=== PATIENT | female | born 1935 | race Caucasian/White ===

== ENCOUNTER 2019-02-17 04:28 | Emergency (ER) | payer MEDICARE ==
[~2019-02-17] VITALS: Ht 157.5 cm; Wt 55.3 kg
[~2019-02-17 04:28] MED LIST: BRIM.15SO BOTHEYES; FISH OIL; LATA.005SO BOTHEYES; NIACIN; TIMOLOL
[2019-02-17] MEDS ORDERED: Prilosec Otc20 MG PO (05:15)
[2019-02-17 05:41] LABS: BASOPHILS ABSOLUTE AUTO 0.04 K/mm3 (0.00-0.23); BASOPHILS PERCENT AUTO 0 % (0-2); EOSINOPHILS ABSOLUTE AUTO 0.13 K/mm3 (0.00-0.68); EOSINOPHILS PERCENT AUTO 1 % (0-6); Hematocrit 37.6 % (33.0-51.0); Hemoglobin 11.8 g/dL (11.5-16.0); IMMATURE GRAN ABSOLUTE AUTO 0.06 K/mm3 (0.00-0.10); IMMATURE GRAN PERCENT AUTO 1 % (0-1); LYMPHOCYTES ABSOLUTE AUTO 3.03 K/mm3 (0.84-5.20); LYMPHOCYTES PERCENT AUTO 26 % (21-46); MONOCYTES ABSOLUTE AUTO 1.03 K/mm3 (0.16-1.47); MONOCYTES PERCENT AUTO 9 % (4-13); Mean Corpuscular HGB 29.2 pg (26.0-34.0); Mean Corpuscular HGB Conc 31.4 g/dL (31.5-36.5); Mean Corpuscular Volume 93 fL (80-100); Mean Platelet Volume 10.3 fL (9.1-12.4); NEUTROPHILS ABSOLUTE AUTO 7.25 K/mm3 (1.96-9.15); NEUTROPHILS PERCENT AUTO 63 % (41-73); Platelet Count 204 K/mm3 (150-400); RDW Coefficient Variation 14.8 % (11.7-14.2); RDW Standard Deviation 51.2 fL (35.1-46.3); Red Blood Cell Count 4.04 M/mm3 (3.80-5.20); White Blood Cell Count 11.54 K/mm3 (4.00-11.30)
[2019-02-17] MEDS ORDERED: Norco 5-325 Ta1 EACH PO (05:49)
[2019-02-17 06:13] LABS: Alanine Aminotransfer (ALT/SGP 17 U/L (12-78); Albumin, Blood 3.4 g/dL (3.4-5.0); Albumin/Globulin Ratio 0.9 (0.8-1.8); Alk Phos 60 U/L (50-136); Anion Gap 8 mmol/L (6-16); Aspartate Aminotrans (AST/SGOT 11 U/L (12-37); Bilirubin, Total 0.9 mg/dL (0.1-1.0); Blood Urea Nitrogen 23 mg/dL (8-24); CO2, Blood 25 mmol/L (21-32); Chloride, Blood 106 mmol/L (98-108); Globulin, Blood 3.9 g/dL (2.2-4.0); Glomerular Filtration Rate 56 (60-); Glucose, Blood 134 mg/dL (70-99); Potassium, Blood 3.7 mmol/L (3.5-5.5); Sodium, Blood 139 mmol/L (136-145); Total Protein, Blood 7.3 g/dL (6.4-8.2); Troponin I <0.015 ng/mL (0.000-0.040)
== END 2019-02-17 06:35 | disposition home or self-care (01) ==
LOC: ER 04:28
PROVIDERS: Emergency Medicine
DX: M06.9 Rheumatoid arthritis, unspecified (principal); Z79.899 Other long term (current) drug therapy
CPT/HCPCS: 36415; 80053; 84484; 85025; 93005; 93010; 99283-25; A9270-GY

== ENCOUNTER → 2020-01-17 | Outpatient (CLI) | payer MEDICARE ==
[~2020-01-17] MED LIST changes: +Norco 5-325 Ta1 EACH PO; +Prilosec Otc20 MG PO
== END | disposition home or self-care (01) ==
LOC: LAB SHORT 18:17 → LAB EV 18:17
DX: N39.0 Urinary tract infection, site not specified (principal)
CPT/HCPCS: 87077; 87086; 87186

== ENCOUNTER 2020-09-10 09:32 | Day surgery (SDC) | payer MEDICARE ==
[~2020-09-10] VITALS: Ht 154.9 cm; Wt 58.0 kg
[~2020-09-10 09:32] MED LIST changes: +AMLO10 PO; +Aspir 8181 MG PO; +CARV3.125 PO; +EUTHYROX25 MC1 PO; +PRED5 PO
[2020-09-10] MEDS ORDERED: Garlic500 MG PO (10:06)
[2020-09-10] MEDS ORDERED: VITAMIN D325 MC3 PO (10:08)
[2020-09-10] MEDS ORDERED: FLAXSEED1000 MG PO (10:08)
[2020-09-10] MEDS ORDERED: Grape Seed50 M1 PO (10:13)
[2020-09-10] MEDS ORDERED: NIAC500 PO (10:13)
[2020-09-10] MEDS ORDERED: FISH OIL 1,2001 EAC1 PO (10:14)
[2020-09-10] MEDS ORDERED: CENTRUM SILVER1 EAC2 PO (10:14)
--- NOTE | 2020-09-10 13:40 | NUR ---
LATE ENTRY: PT REPORTS, "I FEEL SOMETHING POUNDING ON MY ELBOW". THIS NURSE ACCESSES PT R BRACHIAL VEIN SITE. LARGE AMOUNT OF DARK BLOOD NOTED UNDER CLEAR TEGADERM BANDAGE. MANUAL PRESSURE APPLIED X 10 MIN. EXISTING TEGADERM REMOVED. SLIGHT OOZING NOTED NEW LEATHA AND TEGADERM APPLIED. MANUAL PRESSURE HELD ANOTHER 5 MINUTES. R BRANCHIAL SITE NO LONGER BLEEDING. NO HEMATOMA NOTED. WILL CONTINUE TO MONITOR SITE. KAY. MARCIO.
--- NOTE | 2020-09-10 15:35 | NUR ---
PT'S TR BAND FULLY DEFLATED, SITE WITHOUT S/S OF SWELLING/HEMATOMA. PT RAC IV (RHC) SITE WITH PRESSURE DRSG IN PLACE, NO SWELLING/HEMATOMA. PT DENIES PAIN AT R RADIAL OR R AC SITE.
--- NOTE | 2020-09-10 16:10 | NUR ---
PT UP TO BATHROOM, GAIT STEADY, VOIDED QS. R RADIAL AND R AC SITE REMAINED UNCHANGED. R AC SITE PRESSURE DRSG REMOVED, NO SWELLING/HEMATOMA LEATHA DRSG C,D,I.
--- NOTE | 2020-09-10 16:25 | NUR ---
PT DRESSED WITH MINIMAL ASSISTANCE, R RADIAL SITE UNCHANGED; IV REMOVED-CANNULA INTACT. TR BAND REMOVED CLOTH DOT AND WRIST IMMOBILIZER PLACED. R AC SITE WITH SMALL OZZE, NO SWELLING/HEMATOMA; MANUAL PRESSURE, LIGHT PRESSURE DRESSING APPLIED AND PT INSTRUCTED TO REMOVE AT 7 PM TONIGHT-VERBALIZES GOOD UNDERSTANDING. PT R [facility] PLACED IN SLING PER PT REQUEST.
--- NOTE | 2020-09-10 16:45 | NUR ---
PT RECEIVED DISCHARGE INSTRUCTIONS, MED LIST, CD FOR SURGERY CONSULT, AND AFTER CARE INSTRUCTIONS; VERBALIZED GOOD UNDERSTANDING. PT'S R AC SITE REMAINED [id number] SWELLING/HEMATOMA, PRESSURE DRSG C,D,I. PT LEFT FACILITY VIA W/C, CONDITION STABLE.
== END 2020-09-10 16:45 | disposition home or self-care (01) ==
LOC: MHTC 09:32
DX: I25.10 Atherosclerotic heart disease of native coronary artery without angina pectoris (principal); E78.5 Hyperlipidemia, unspecified; I10 Essential (primary) hypertension; Z79.82 Long term (current) use of aspirin; Z79.899 Other long term (current) drug therapy; Z88.8 Allergy status to other drugs, medicaments and biological substances
CPT/HCPCS: 76937; 93005; 93010; 93460; 99152; 99153; C1769; C1894; J1644; J2250; J3010; J7030; J7050; Q9967

== ENCOUNTER 2020-09-19 02:41 | Emergency (ER) | payer MEDICARE ==
[~2020-09-19] VITALS: Ht 157.5 cm; Wt 56.7 kg
[~2020-09-19 02:41] MED LIST changes: +CENTRUM SILVER1 EAC2 PO; +FISH OIL 1,2001 EAC1 PO; +FLAXSEED1000 MG PO; +Garlic500 MG PO; +Grape Seed50 M1 PO; +NIAC500 PO; +VITAMIN D325 MC3 PO
[2020-09-19 03:58] LABS: BASOPHILS ABSOLUTE AUTO 0.05 K/mm3 (0.00-0.23); BASOPHILS PERCENT AUTO 1 % (0-2); EOSINOPHILS ABSOLUTE AUTO 0.12 K/mm3 (0.00-0.68); EOSINOPHILS PERCENT AUTO 2 % (0-6); Hematocrit 37.3 % (33.0-51.0); Hemoglobin 11.7 g/dL (11.5-16.0); IMMATURE GRAN ABSOLUTE AUTO 0.06 K/mm3 (0.00-0.10); IMMATURE GRAN PERCENT AUTO 1 % (0-1); LYMPHOCYTES ABSOLUTE AUTO 2.92 K/mm3 (0.84-5.20); LYMPHOCYTES PERCENT AUTO 37 % (21-46); MONOCYTES ABSOLUTE AUTO 0.88 K/mm3 (0.16-1.47); MONOCYTES PERCENT AUTO 11 % (4-13); Mean Corpuscular HGB 28.7 pg (26.0-34.0); Mean Corpuscular HGB Conc 31.4 g/dL (31.5-36.5); Mean Corpuscular Volume 91 fL (80-100); Mean Platelet Volume 10.2 fL (9.1-12.4); NEUTROPHILS ABSOLUTE AUTO 3.86 K/mm3 (1.96-9.15); NEUTROPHILS PERCENT AUTO 49 % (41-73); Platelet Count 231 K/mm3 (150-400); RDW Coefficient Variation 13.9 % (11.7-14.2); RDW Standard Deviation 47.3 fL (35.1-46.3); Red Blood Cell Count 4.08 M/mm3 (3.80-5.20); White Blood Cell Count 7.89 K/mm3 (4.00-11.30)
[2020-09-19 04:13] LABS: International Normalized Ratio 1.02; Prothrombin Time Results 10.9 Sec (9.7-11.5)
[2020-09-19 04:19] LABS: Alanine Aminotransfer (ALT/SGP 19 U/L (12-78); Albumin, Blood 3.8 g/dL (3.4-5.0); Albumin/Globulin Ratio 1.2 (0.8-1.8); Alk Phos 58 U/L (50-136); Anion Gap 7 mmol/L (6-16); Aspartate Aminotrans (AST/SGOT 14 U/L (12-37); Bilirubin, Total 0.5 mg/dL (0.1-1.0); Blood Urea Nitrogen 19 mg/dL (8-24); Bun/Creatinine Ratio 17.8 (12.0-20.0); CO2, Blood 26 mmol/L (21-32); Calcium, Blood 9.3 mg/dL (8.5-10.1); Chloride, Blood 109 mmol/L (98-108); Creatinine, Blood 1.07 mg/dL (0.40-1.00); Globulin, Blood 3.1 g/dL (2.2-4.0); Glomerular Filtration Rate 52 (60-); Glucose, Blood 91 mg/dL (70-99); Magnesium, Blood 2.2 mg/dL (1.6-2.4); Potassium, Blood 3.8 mmol/L (3.5-5.5); Sodium, Blood 142 mmol/L (136-145); Total Protein, Blood 6.9 g/dL (6.4-8.2); Troponin I <0.015 ng/mL (0.000-0.040)
== END 2020-09-19 06:00 | disposition home or self-care (01) ==
LOC: ER 02:41
PROVIDERS: Emergency Medicine
DX: F41.9 Anxiety disorder, unspecified (principal); M79.622 Pain in left upper arm; Z79.82 Long term (current) use of aspirin; Z79.899 Other long term (current) drug therapy; Z79.52 Long term (current) use of systemic steroids
CPT/HCPCS: 36415; 80053; 83735; 84484; 85025; 85610; 93005; 93010; 93971; 99284-25

== ENCOUNTER 2020-10-10 06:20 | Inpatient (IN) | payer MEDICARE ==
[~2020-10-10] VITALS: Ht 154.9 cm; Wt 49.6 kg
[~2020-10-10 06:20] MED LIST changes: +ALUM-MAG HYDROX30 ML; +Alph-E-Mixed400 UNIT; +C COMPLEX1000 M1 PO; +CO Q10100 MG PO; +POTASSIUM GLUCO99 M1 PO
[2020-10-10] MEDS ORDERED: PRED5 PO (07:28)
--- NOTE | 2020-10-10 13:00 | NUR ---
RECEIVED PT FORM [facility] VIA BERNADINE. S/P PCI WITH STENT X 5 TO RCA. PT IS A&OX3. REPORTS 5/10 MID BACK PAIN. ECG SHOWS SB WITH FIRST DEGREE AV BLOCK WITH RATE 50'S. RIGHT RADIAL ACCESS SITE WITH TR BAND IN PLACE-14 CC AIR TO CUFF. RIGHT FEMORAL SHEATH INTACT WITH HEPARINIZED LINE. TRACE OOZING OF BLOOD NOTED, BUT NO HEMATOMA. DP/PT PULSES PALPABLE AND NORMAL SENSATION. LUNGS CLEAR- NO NOTED SOB. GIVEN SIPS OF CLEAR LIQUIDS WITHOUT DIFFICULTY. #16 FR MERRITT INSERTED AND UA SENT PER INSERTION PROTOCOL. BASELINE PT/PTT DRAWN PRIOR TO PT LEAVING [facility].
[2020-10-10 13:41] LABS: Source, Urine Catheter
--- NOTE | 2020-10-10 13:53 | NUR ---
RIGHT RADIAL TR BAND SITE REMAINS UNCHANGED. RIGHT FEMORAL SHEATH REMAINS INTACT WITH NO ADDITIONAL OOZING AT THIS TIME. PT CONTINUES TO REPORT HEARTBURN AND MID BACK PAIN. MED WITH MALOXX AND TYLENOL-SEE EMAR. HEPARIN GTT STARTED PER PHARMACY DOSING @ 13 UNITS/KG/HR.
[2020-10-10 14:15] LABS: Bilirubin, Urine Neg (Neg); Blood, Urine Neg (Neg); Glucose Qualitative, Urine Neg (Neg); Ketones, Urine Neg (Neg); Leukocyte Esterase, Urine Neg (Neg); Nitrite, Urine Neg (Neg); Protein, Urine Neg (Neg); Urobilinogen, Urine NORM (Normal)
[2020-10-10 14:34] LABS: Appearance, Urine Clear (Clear); Color, Urine Yellow (P-Yellow)
[2020-10-10 14:40] LABS: International Normalized Ratio 1.14; Prothrombin Time Results 12.1 Sec (9.7-11.5)
--- NOTE | 2020-10-10 14:45 | NUR ---
CRITICAL PTT REPORTED BY LAB. HEPARIN DRIP PLACE ON HOLD AND STAT PTT ORDERED. PT DENIES COMPLAINTS AT THIS TIME AND REPORTS THAT SHE WAS ABLE TO "TAKE A LITTLE NAP."
--- NOTE | 2020-10-10 16:30 | NUR ---
PTT CONTINUES>139. CONTINUE TO HOLD HEPARIN AND RECHECK PTT PER PHARMACY. HOB ELEVATED TO 30 DEGREES AND RIGHT FEMORAL SITE REMAINS CLEAR.NO ACUTE BLEEDING OR HEMATOMA. PT MAY HAVE HOB 30-45 DEGREES, BUT CONTINUE TO AVOID FLEXION.
--- NOTE | 2020-10-10 18:45 | NUR ---
PT REPORTED 3/10 ACHE TO RIGHT RADIAL SITE. MILD BRUISING NOTED UNDER TR BAND, BUT SITE IS SOFT. PTT 40'S SEE LAB. HEPARIN DRIP RESUMED @ 13 UNITS/KG/MIN. PHARMACY TO ORDER FOLLOW UP PTT. SLOWLY REMOVED 4 CC AIR FROM TR BAND AND PT STATED THAT THE ACHING WAS RELIEVED.
--- NOTE | 2020-10-10 19:19 | NUR ---
SLIGHT AMOUNT OF OOZING NOTED UNDER TR BAND-2 CC AIR INFLATED AND HEMOSTATIS ACHIEVED. BRUISING UNDER TR BAND IS UNCHANGED.PT DENIES PAIN OR DISCOMFORT. REPORT GIVEN TO ONCOMING SHIFT.
--- NOTE | 2020-10-10 19:45 | NUR ---
CARE ASSUMED 1900 PT A/O X 4 (TIME/DATE/EVENT/LOCATION) AND ABLE TO ANSWER QUESTIONS/FOLLOW COMMANDS. PT APPEARS ANXIOUS WHEN SPEAKING ABOUT HER AND HIS HOSPITALIZATION, DURING THIS TIME PTS SBP INCREASES TO 180. ON RA, SPO2 > 90%. RIGHT RADIAL PUNCTURE WOUND WITH TR BAND IN PLACE. NO HEMATOMA NOTED. RIGHT FEMORAL SITE WITH SHEATH AND ART LINE IN PLACE. DRESSING C/D/I. NO HEMATOMA NOTED. ART LINE ZEROED WITH GOOD WAVE FORM. PT MERRITT IN PLACE, DRAINING TO GRAVITY. DR. MUSA CALLED IN REGARDS TO PTS SBP > 180, RECIEVED ORDERS FOR IV HYDRALAZINE. PROVIDER ALSO UPDATED ON PTS TR BAND HAVING A SCANT AMOUNT OF BLOOD WHEN 2 CC'S OF AIR WAS REMOVED PER DAYSHIFT NURSE. ORDERS RECIEVED TO WAIT TWO HOURS BEFORE TRYING TO REMOVE MORE AIR FROM TR BAND. WILL CONTINUE TO MONITOR.
[2020-10-11 01:57] LABS: BASOPHILS ABSOLUTE AUTO 0.03 K/mm3 (0.00-0.23); BASOPHILS PERCENT AUTO 0 % (0-2); EOSINOPHILS ABSOLUTE AUTO 0.11 K/mm3 (0.00-0.68); EOSINOPHILS PERCENT AUTO 1 % (0-6); Hemoglobin 10.2 g/dL (11.5-16.0); IMMATURE GRAN ABSOLUTE AUTO 0.04 K/mm3 (0.00-0.10); IMMATURE GRAN PERCENT AUTO 0 % (0-1); LYMPHOCYTES ABSOLUTE AUTO 2.62 K/mm3 (0.84-5.20); LYMPHOCYTES PERCENT AUTO 27 % (21-46); MONOCYTES PERCENT AUTO 10 % (4-13); Mean Corpuscular HGB 29.7 pg (26.0-34.0); Mean Corpuscular HGB Conc 31.9 g/dL (31.5-36.5); Mean Corpuscular Volume 93 fL (80-100); Mean Platelet Volume 9.7 fL (9.1-12.4); NEUTROPHILS ABSOLUTE AUTO 6.01 K/mm3 (1.96-9.15); NEUTROPHILS PERCENT AUTO 61 % (41-73); Platelet Count 184 K/mm3 (150-400); RDW Coefficient Variation 14.3 % (11.7-14.2); RDW Standard Deviation 48.8 fL (35.1-46.3); Red Blood Cell Count 3.44 M/mm3 (3.80-5.20); White Blood Cell Count 9.81 K/mm3 (4.00-11.30)
[2020-10-11 02:17] LABS: Anion Gap 6 mmol/L (6-16); Blood Urea Nitrogen 13 mg/dL (8-24); Bun/Creatinine Ratio 14.9 (12.0-20.0); CO2, Blood 26 mmol/L (21-32); Calcium, Blood 8.2 mg/dL (8.5-10.1); Chloride, Blood 109 mmol/L (98-108); Creatinine, Blood 0.87 mg/dL (0.40-1.00); Glomerular Filtration Rate >60 (60-); Glucose, Blood 86 mg/dL (70-99); Potassium, Blood 3.5 mmol/L (3.5-5.5); Sodium, Blood 141 mmol/L (136-145)
--- NOTE | 2020-10-11 06:18 | NUR ---
SHIFT SUMMARY PT ON 2 L VIA NC, SPO2 > 95%. A/O X 4 AND ABLE TO MAKE NEEDS KNOWN. LUNG SOUNDS CLEAR. BOWEL TONES ACTIVE. PT CONTINUES TO BE ON HEPARIN AT 13 UNITS/KG/HR. DURING MIDNIGHT PTS BLOOD PRESSURE INCREASED AND DR. MUSA CALLED TO RECEIVE NEW ORDERS FOR PO HYDRALAZINE DUE TO IV HYDRALAZINE SHORTAGE, GOOD EFFECT. TEMP MERRITT IN PLACE, DARK YELLOW CLOUDY URINE. TR BAND AIR RELEASED SLOWLY FROM 2245 TO 2345, SITE SOFT WITHOUT HEMATOMA. PTS BP INCREASED TO SBP > [address] MUSA WAS CALLED. RESUMED TR BAND AIR REMOVAL AT 0230 AND PTS TOLERATED WELL AND BP WAS STABLE. TR BAND REMOVED WITH TEGADERM PLACED AND SITE REMAINS STABLE. RIGHT FEMORAL GROIN SHEATH STABLE WITH GOOD WAVE FORM FOR BP MONITORING. AT 0515 PT STARTED TO COMPLAIN OF MID LOWER BACK PAIN (3/10) SIMILAR TO WHAT SHE HAD DURING STENT PLACEMENT. DR. MUSA CALLED AND RECIEVED ORDERS FOR SL NITRO 0.4 MG. PTS STATES IMPROVED PN (2/10) AFTER NITRO BUT BP DECREASED TO SBP 90-100 AND DBP 30-40. PT STATES NO NEW PN AND CONTINUES TO BE A/O. PTS BP INCREASES TO SBP 120 AND DBP 40 WHEN SHE IS HAVING A CONVERSATION. WILL REPORT TO ONCOMING SHIFT.
--- NOTE | 2020-10-11 07:20 | NUR ---
REC'D BEDSIDE REPORT FROM NALLELY/RAHEL IRWIN AND AM NOW ASSUMING CARE OF THIS PT. HEPERIN GTT RATE, TR BAND SITE, RT FEMORAL ARTERIAL SITES CHECKED.
--- NOTE | 2020-10-11 08:06 | NUR ---
UPDATE FROM DR MUSA: SPOKE WITH DR MUSA AND SHE REPORTS WE WILL START IMDUR FOR CONTINUED MID BACK DISCOMFORT/PAIN. KEEP HEPARIN GTT OFF AT THIS POINT AND CHECK PTT'S Q2H AND MAY PULL SHEATH TODAY. PT MAY BE TAKEN BACK TO [facility] WEDNESDAY.
--- NOTE | 2020-10-11 12:19 | NUR ---
ATTEMPTED TO CALL PT'S TO GIVE ANOTHER UPDATE, BUT THE LINE IS BUSY.
--- NOTE | 2020-10-11 13:07 | NUR ---
CALLED DR MUSA RE: CONTINUED MID-BACK PAIN.
--- NOTE | 2020-10-11 13:19 | NUR ---
PT UPDATE: PT NOW C/O OF ACHY PAIN THAT IS INCREASING TO HER MID-BACK, "IN BETWEEN SOULDER BLADES" AND "SORE THROAT AND PAIN THAT EXTENDS DOWN RT ARM." PT REPORTS THE 2 LAST SYMPTOMS HAVE NEVER HAPPENED BEFORE. CALLED DR MUSA TO UPDATE HER ON PT'S SYMPTOMS. WILL GIVE NTG SL AND TO BE IN SHORTLY TO ASSESS PT.
--- NOTE | 2020-10-11 13:54 | NUR ---
Upon receiving an admit referral for spiritual care, I visit patient. Patient tells me about the 5 stints and the 3 more yet to come. Patient talks at length about her raphael and the depth of meaning prayer has for her. I gladly provide prayer. Patient responds well and shows signs of having her raphael strengthened. I will continue to remain available to patient and family.
--- NOTE | 2020-10-11 14:30 | NUR ---
PT UPDATE: DR MUSA IN TO ASSESS PT. PT CONTINUES TO C/O DEEP ACHY PAIN ACROSS THE UPPER BACK. DENIES ANY RADIATION AT THIS TIME. PT PRE-MEDICATED WITH ZOFRAN IV, THEN MEDICATED WITH MORPHINE PER DR'S ORDERS FOR CONTINUED PAIN.
--- NOTE | 2020-10-11 16:52 | NUR ---
SHIFT SUMMARY: ARTERIAL SHEATH REMAINS IN RT GROIN, IN PREP FOR THE PT TO RETURN TO THE [facility] TOMORROW FOR FURTHER TX. PT HAS HAD MID UPPER BACK PAIN THAT HAS SPREAD ACROSS SHOULDERS AND LATER DOWN THE RT ARM AND PT DESCRIBES, "SORE THROAT, WHICH IS NEW." PT INITIALLY MEDICATED WITH FENTANYL 12.5MCG IVP, WHICH PROVED SLIGHTLY HELPFUL FOR UNDER AN HOUR. DR MUSA CALLED AND UPDATED TO INCREASING AREAS OF PAIN. PT THEN MEDICATED WITH MAALOX, WITN NO RELIEF. THEN GIVEN NTG SL X1, WHICH WAS SLIGHTLY HELPFUL. WHAT PROVED TO BE MOST HELPFUL IN REDUCING "ACHY PAIN" WAS MORPHINE IVP. PT REMAINS ALERT AND ORIENTED X3. ANSWERS QUESTIONS AND USES CALL LIGHT APPROPRIATELY. FOLLOWS DIRECTIONS AND CAN MINIMALLY ASSIST WITH TURNS. PT HAS BEEN COMPLIANT WITH REMAINING SUPINE R/T SHEATH. HR REGULAR, SR 50-60'S. RT TR BAND SITE IS STABLE, NO OOZING/BLEEDING AND SPLINT REMAINS IN PLACE.
--- NOTE | 2020-10-11 19:00 | NUR ---
REPORTED OFF TO NALLELY/RAHEL YANCEY AND THEY ARE NOW ASSUMING CARE OF THIS PT. PT'S RT WRIST AND RT FEMORAL/ARTERIAL SITE CHECKED.
--- NOTE | 2020-10-11 20:12 | NUR ---
CARE ASSUMED 1900 PT A/O X 4 AND ABLE TO FOLLOW COMMANDS/MAKES NEEDS KNOWN. HEPARIN GTT 13 UNITS/KG/HR, INFUSING TO LEFT AC IV. ARTERIAL SHEATH IN RT GROIN AND PUNCTURE WOUND IN RIGHT RADIAL FROM TR BAND, NO BLEEDING/HEMATOMA NOTED. PT ON 2 L VIA NC, SPO2 > 95%. NSR, HR 60'S AND BP 130'S/40'S. PT STATES ACHY HAVING MID UPPER BACK PAIN THAT RADIATES TO THE NECK, PAIN 2/10. PREMEDICATED WITH ZOFRAN DUE TO DAYSHIFT NURSE BEST STATING PT HAS NAUSEA WITH MORPHINE. TREATED WITH 2 MG MORPHINE WITH GOOD EFFECT. PT SLEEPING AFTER MEDICATION, VSS.
--- NOTE | 2020-10-11 23:10 | NUR ---
UPDATE PTS HEPARIN INCREASED TO 14 UNITS/KG/HR AFTER RECIEVING ORDERS FROM PHARAMCY ABOUT PTT RESULTS OF 51.7. PT SLEEPING AT THIS TIME AND DURING BLOOD DRAW DEINED PAIN TO MID-UPPER BACK.
--- NOTE | 2020-10-12 03:23 | NUR ---
UPDATE PT STATES HAVING ACHY MID-UPPER BACK PAIN AND LOWER POSTERIOR HEADACHE (2/10). SBP INCREASED TO 150'S AND DBP 40'S. PT TREATED WITH MORPHINE, PER EMAR. HAD GOOD EFFECT, PAIN DECREASED TO 0/10 AND PT RESTING. SBP DECREASED TO 130'S. VSS.
[2020-10-12 05:24] LABS: Hematocrit 30.3 % (33.0-51.0); Hemoglobin 9.6 g/dL (11.5-16.0); Mean Corpuscular HGB Conc 31.7 g/dL (31.5-36.5); Mean Corpuscular Volume 92 fL (80-100); Platelet Count 191 K/mm3 (150-400); RDW Coefficient Variation 14.1 % (11.7-14.2); RDW Standard Deviation 47.8 fL (35.1-46.3); Red Blood Cell Count 3.31 M/mm3 (3.80-5.20); White Blood Cell Count 10.85 K/mm3 (4.00-11.30)
[2020-10-12 06:10] LABS: Bun/Creatinine Ratio 12.6 (12.0-20.0); Calcium, Blood 8.4 mg/dL (8.5-10.1); Creatinine, Blood 0.95 mg/dL (0.40-1.00)
--- NOTE | 2020-10-12 06:29 | NUR ---
SHIFT SUMMARY PT CONTINUES TO BE A/O X 4, FOLLOWS COMMANDS, AND MAKES NEEDS KNOWN. ON 2 L VIA NC, SPO2 > 90%. PT DENIES MID-UPPER BACK PN AND HEADACHE, SEE PREVIOUS NOTE. RIGHT FEMORAL SITE WITHOUT HEMATOMA, DRESSING C/D/I. RIGHT RADIAL SITE WITH OPSITE, C/D/I. HEPAIN GTT 14 UNITS/KG/HR, INFUSING VIA LEFT AC. PTT RESULTS OF 64.5 RELAYED TO PHARAMCY, NO CHANGE IN DOSE AT THIS TIME AND NEXT PTT DRAW AT 1200. VSS. SPOKE TO PTS DAUGHTER WHILE IN PTS ROOM AND UPDATED ON PT STATUS. MERRITT CATH IN PLACE, URINE OUTPUT OF 900. PT ABLE TO TAKE SMALL SIPS OF WATER WITH ASSITANCE T/O NIGHT. WILL REPORT TO ONCOMING SHIFT.
--- NOTE | 2020-10-12 07:45 | NUR ---
ASSUMED CARE / DR MUSA: REPORT RECEIVED FROM NALLELY Colon RN. ASSUMED CARE OF THIS PT AT APPROX 0700. ON ASSESSMENT, THE PT IS A&O, PLEASANT & COOPERATE. SHE IS LAID BACK IN REVERSE TRENDELENBERG R/T GROIN SITE PRECAUTIONS. PT ON 2L NC W/ O2 SATS > 92%. MONITOR SHOWS SR W/ HR 60-80s, BP STABLE PER ART LINE READING CHARTED. PT IS TOLERATING PO INTAKE WELL, HAS HAD NO BM x2 DAYS. MERRITT PATENT/ DRAINING CLEAR YELLOW URINE. SKIN CONDITION OVERALL CDI. ANGIO SITES x2; R RADIAL SITE W/ OPSITE DRESSING CDI, WRIST IMMOBILIZER IN PLACE. ARTERIAL SHEATH IN PLACE TO R FEMORAL, DRESSING CDI, PT COMPLAINT W/ GROIN SITE PRECAUTIONS. PROVIDER AT BEDSIDE TO EVAL PT AT APPROX 0735. SHE HAS DECIDED THAT THE PT IS NOT GOING TO THE CUSHION INSTALLER FOR MORE STENTS TODAY ORIGINALLY PLANNED R/T PT's SEVERE PAIN AFTER PROCEDURE. SHE FEELS THAT THE PT WOULD BENEFIT FROM HAVING A FEW WEEKS OF REST BEFORE ATTEMPTING TO STENT REMAINING AREAS. SHE REQUESTS THAT THE HEPARIN BE TURNED OFF AT THIS TIME & THAT aPTT BE CHECKED Q2H UNTIL < 40.0, AT WHICH TIME FEMORAL SHEATH MAY BE REMOVED. ONCE SHEATH REMOVED & SITE REMAINS STABLE, SHE WOULD LIKE THE PT TO PROGRESSIVELY INCREASE ACTIVITY UNTIL AMBULATION ACHIEVED TO DETERMINE IF CHEST/BACK PAIN WILL REOCCUR. NEW MED ORDERS PLACED & PROVIDER WOULD LIKE EKG TO BE COMPLETED 2 HRS AFTER FIRST RANEXA DOSE GIVEN. WILL CONTINUE TO MONITOR & UPDATE NEEDED.
--- NOTE | 2020-10-12 14:45 | NUR ---
ARTERIAL SHEATH REMOVAL: ARTERIAL SHEATH HAS BEEN REMOVED BY THIS RN AT 1420. MANUAL PRESSURE HELD FOR 20 MINS UNTIL 1440 AT WHICH TIME THE SITE WAS CHECKED & NO BLEEDING OR HEMATOMA FORMATION WAS NOTED. LEATHA DRESSING HAS BEEN PLACED AT TIME OF SHEATH REMOVAL. QUARTER SIZED SANGUINOUS DRAINAGE NOTED ON LEATHA DRESSING AFTER MANUAL PRESSURE HELD, THIS HAS BEEN MARKED & IS UNCHANGED. LARGE TEGADERM PLACED OVER LEATHA DRESSING & SITE REMAINS WNL. VSS DURING THIS TIME. PT DENIES ANY PAIN & UNDERSTANDS NECESSITY OF REMAINING SUPINE FOR THE NEXT FEW HOURS.
--- NOTE | 2020-10-12 18:05 | NUR ---
SHIFT SUMMARY: NO ACUTE CHANGES SINCE PRIOR UPDATES. AT 3 HRS POST SHEATH REMOVAL, THE PT HAS BEEN REPOSITIONED W/ HOB UP TO 30 DEGREES. NO CHANGES TO SITE; AREA REMAINS FREE OF BLEEDING, BRUISING OR HEMATOMA FORMATION & IS SOFT/ NONTENDER TO PALPATION. PT ON 5L NC FOR PERSISTANT DESATS TO 86% WHEN SLEEPING SOUNDLY, WHEN AWAKE, O2 SATS > 92% ON RA. MONITOR SHOWS SR W/ HR 60-80s. PT HAS NO GI COMPLAINTS & IS TOLERATING PO INTAKE WELL. MERRITT REMAINS PATENT/ DRAINING CLEAR YELLOW URINE. SKIN CONDITION OVERALL CDI. BOTH ANGIO SITES REMAIN STABLE & WRIST IMMOBILIZER REMAINS IN PLACE PT REMINDER TO AVOID USE. WILL CONTINUE TO MONITOR & REPORT OFF TO ONCOMING RN.
--- NOTE | 2020-10-12 21:45 | NUR ---
CARE ASSUMED 1900 PT A/O X4 AND ABLE TO STATE WHEN IN PAIN. ON 5 L VIA NC DURING AT START OF SHIFT, SPO2 94%. NC REMOVED DURING ASSESSMENT, PT DECREASES TO SPO2 92-94%. PLACED ON 2 L VIA NC, SPO2 95%. DENIES PN AT THIS TIME, HR 70'S IN NSR, BP STABLE. RIGHT FEMORAL SHEATH REMOVED PER DAYSHIFT NURSE AND LEATHA DRESSING C/D/I. NO HEMATOMA NOTED, EXTREMITY DISTAL PULSES STRONG, COLOR WNL, AND ABLE TO MOVE EXTREM. PT REVERSE [place]ENDELENBURG POSITION, HOB AT 30 DEGREES. RIGHT RADIAL SITE DRESSING C/D/I. MERRITT IN PLACE, DRAINING TO GRAVITY. VSS.
--- NOTE | 2020-10-12 23:43 | NUR ---
PT UP TO RECLINER FOR 20 MINUTES. PT BECAME TIRED QUICKLY AND ASKED IF SHE COULD GO BACK TO SLEEP. BP INCREASED TO 149/72 DURING THE MOVE BUT RETURNED TO 134/71 AFTER SITTING IN RECLINER. HR BETWEEN 70-80'S. PT STATES BEING SLIGHTLY DIZZY WHILE STANDING AND DENIES PAIN. RIGHT FEMORAL SITE DRESSING C/D/I, NO HEMATOMA, OR SWELLING. PT ABLE TO MOVE ALL EXTREMS. SITTING IN RECLINER MOVING ARMS AND LEGS TO INCREASE STRENGTH. UPPER MID-BACK HAS SMALL PURPLE BRUISE THAT WAS NOT PRESENT YESTERDAY, PT DENIES TENDERNESS/PN IN THE AREA. PT STATES RIGHT LOWER FOOT HURTING WHILE STANDING, CRACKED SKIN NOTED IN AREA. PAIN 3-4 WHEN PUSHING ON THE FOOT OTHERWISE PT STATES NO PAIN. PT BACK IN BED AND SLEEPING. VSS.
[2020-10-13 04:20] LABS: Hematocrit 32.4 % (33.0-51.0); Hemoglobin 10.4 g/dL (11.5-16.0); Mean Corpuscular HGB 29.6 pg (26.0-34.0); Mean Corpuscular HGB Conc 32.1 g/dL (31.5-36.5); Mean Corpuscular Volume 92 fL (80-100); Mean Platelet Volume 10.1 fL (9.1-12.4); Platelet Count 200 K/mm3 (150-400); RDW Coefficient Variation 14.5 % (11.7-14.2); RDW Standard Deviation 49.1 fL (35.1-46.3); Red Blood Cell Count 3.51 M/mm3 (3.80-5.20); White Blood Cell Count 11.12 K/mm3 (4.00-11.30)
[2020-10-13 04:36] LABS: Bun/Creatinine Ratio 13.6 (12.0-20.0); Calcium, Blood 8.8 mg/dL (8.5-10.1); Creatinine, Blood 1.03 mg/dL (0.40-1.00); Potassium, Blood 4.4 mmol/L (3.5-5.5)
--- NOTE | 2020-10-13 06:21 | NUR ---
SHIFT SUMMARY PT CONTINUES TO BE A/O X 4. DENIES CP AND LOWER BACK PN. PT ABLE TO SITUP TO BEDSIDE COMMADO, TOLERATED WELL. PT STATES HAVING RIGHT LOWER FOOT PAIN WHICH IS WORSENED WHEN SHE STANDS ON IT/TRIES TO WALK. PT STATES THIS SORT OF PAIN HAS OCCURED IN THE PAST AND IS RELIEVED WITH ROLLING FOOT ON TENNIS BALL OR FOOT MASSAGE. STATES HISTORY OF "PLANTAR FASCIITIS". PT GIVEN A BOTTLE TO ROLL FOOT ON AT BEDSIDE, PT STATES FOOT PAIN WAS RELIEVED WITH THIS. PT IS WEAK AND REQUIRES A ONE PERSON ASSIST. RIGHT RADIAL SITE WITH OPSITE DRESSING, C/D/I. RIGHT FEMORAL SITE WITH LEATHA DRESSING, C/D/I. NO HEMATOMA/TENDERNESS NOTED IN THE AREA. MERRITT IN PLACE, URINE OUTPUT OF 750. VSS. NSR. WILL REPORT TO ONCOMING SHIFT.
--- NOTE | 2020-10-13 07:45 | NUR ---
AM NOTE... ASSUMED CARE OF PT APROX 0700, PT IS A&Ox4, PT WAS ADMITTED FOR CAD AND SOB SHE GOT SEVERAL STENTS TO THE [facility]CA AND THE PLAN IS FOR HER TO RETURN IN A FEW WEEKS TO FIX THE OTHERS. PT'S VS STABLE AT THIS TIME. L/S CLEAR T/O PT IS ON 2L NC WITH O2 SATS>98% THIS WAS REMOVED TO SEE HOW THE PT SATS DID WITHOUT O2. CURRENTLY SHE IS >95% ON RA. BT PRESENT AND HYPOACTIVE, ABD IS SOFT AND NONTENDER TO PALP. MERRITT PATENT AND DRAINING TO GRAVITY. RIGHT WRIST SITE IS C/D/I WITH ARM BOARD IN PLACE, RIGHT GROIN HAS LEATHA DRESSING WITH SMALL AMOUNT OF DRY BLOOD THAT HAS BEEN OUTLINED. SMALL AREA OF BRUISING IS NOTED TO THE BOTTOM OF THE DRESSING, NO SWELLING OR HEMATOMA NOTED. PT DENIES ANY CHEST PAIN BUT IS C/O OF MID BACK PAIN THAT PER REPORT HAS RESPONDED TO THE RENEXA AND IMDUR. WILL CONTINUE TO MONITOR.
[2020-10-13] MEDS ORDERED: CLOP75 PO (10:18)
[2020-10-13] MEDS ORDERED: Isosorbide Mono30 MG PO (10:19)
[2020-10-13] MEDS ORDERED: RANO500T PO (10:19)
--- NOTE | 2020-10-13 13:04 | NUR ---
D/C HOME... PT D/C HOME WITH HER DAUGHTER. PT WALKED AROUND THE UNIT WITH THIS RN USING GAITBELT AND FWW, PT DID WELL. EXTENSIVE EDUCATION WAS PROVIDED TO THE PT AND HER DAUGHTER ABOUT NEW MEDICATIONS, CONDITION AND DIET. NEW MEDICATIONS WERE CALLED IN TO THE PHARMACY OF HER CHOICE. IV WAS REMOVED WNL. ALL OF PT'S BELONGINGS PACKED AND SENT WITH THE PT.
[2020-11-01] MEDS ORDERED: PRED1 PO (15:16)
== END 2020-10-13 13:00 | disposition home or self-care (01) | DRG 246 ==
LOC: MHTC 06:20 → ICUE 12:07 → MHTC 20:51 → ICUW 20:52 → ICUE 20:55
PROVIDERS: ADMIT Internal Medicine Interventional Cardiology
PROC: 027037Z Dilation of Coronary Artery, One Artery with Four or More Drug-eluting Intraluminal Devices, Percutaneous Approach (ICD-10-PCS; principal; 2020-10-10)
PROC: B2111ZZ Fluoroscopy of Multiple Coronary Arteries using Low Osmolar Contrast (ICD-10-PCS; 2020-10-10)
DX: I25.10 Atherosclerotic heart disease of native coronary artery without angina pectoris (principal); I13.0 Hypertensive heart and chronic kidney disease with heart failure and stage 1 through stage 4 chronic kidney disease, or unspecified chronic kidney disease; E78.5 Hyperlipidemia, unspecified; M06.4 Inflammatory polyarthropathy; Z79.82 Long term (current) use of aspirin; N18.30 Chronic kidney disease, stage 3 unspecified; I12.9 Hypertensive chronic kidney disease with stage 1 through stage 4 chronic kidney disease, or unspecified chronic kidney disease; I50.9 Heart failure, unspecified
CPT/HCPCS: 36415; 51702; 76937; 80048; 81003; 85025; 85027; 85347; 85610; 85730; 93005; 93010; 93454; 99152; 99153; A9270; A9270-GY; C1725; C1769; C1874; C1887; C1894; C9600; J1644; J2250; J2270; J2405; J3010; J7030; J7040; J7050; J7512; Q9967

== ENCOUNTER 2020-11-04 07:44 | Observation (INO) | payer MEDICARE ==
[~2020-11-04] VITALS: Ht 154.9 cm; Wt 57.6 kg
[~2020-11-04 07:44] MED LIST changes: +CLOP75 PO; +Isosorbide Mono30 MG PO; +PRED1 PO; +RANO500T PO
[2020-11-04] MEDS ORDERED: MAGNESIUM250 MG PO (08:24)
--- NOTE | 2020-11-04 11:00 | NUR ---
PT ARRIVES TO ICU 8 FROM [facility]. PT HAS SHEATH IN PLACE TO R GROIN. AWAITING ORDERS FROM DR. MUSA. PT IS A/O X4. DENIES PAIN, N/V, SOB, AND DIZZINESS. EDUCATED ABOUT GROIN ACCESS PRECAUTIONS AND PT EXHIBITS KNOWLEDGE. PEDAL PULSES STRONG BILAT. ON 1L NC. NO SIGN OF DISTRESS.
--- NOTE | 2020-11-04 13:41 | NUR ---
PT RESTING IN BED. NO SIGN OF DISTRESS. SHEATH STILL IN PLACE. WAITING FOR PTT TO COME BACK TO SEE IF SHEATH CAN BE PULLED. CHECKED WITH LAB ATER ONE HOUR OF WAITING AND THEY STATED IT WILL BE ANOTHER 20MINS UNTIL RESULTS.
--- NOTE | 2020-11-04 16:36 | NUR ---
STILL WAITING FOR PTT TO BE LESS THAN 40 TO PULLL SHEATH FROM R GROIN. PT IS LAYING FLAT AND IS VERY COMPLIANT.
--- NOTE | 2020-11-04 18:42 | NUR ---
SUMMARY PT HAD BALLOONING AND STENTS DONE IN DIRECTOR INFORMATION SECURITY TODAY. SHEATH WAS IN R GROIN MOST OF THE DAY DUE TO PTT BEING TOO HIGH TO REMOVE SHEATH. AT 1755 SHEATH WAS REMOVED WHEN PTT WAS LESS THAN 40. MANUAL PRESSURE WAS HELD FOR 20MINS AND PT TOLERATED WELL. PT HAS BLUE/GREEN BRUISING JUST UNDER NEW CATH SITE FROM HAVING STENTS PLACED 3 WEEKS AGO. THAT SITE IS ALSO STABLE. THERE IS A VERY SMALL AREA AT OLD SITE THAT FEELS A LITTLE HARDENED. CLEAR OCCLUSIVE DRESSING PLACED OVER SITE. PT IS VERY COMPLIANT AND ABLE TO TEACH BACK ON GROIN SITE DIRECTIONS AND CARE. SPO2 PROBE ON R 2ND TOE WITH GOOD PLETH AND SPO2 READING IN HIGH 90'S. NO SIGN OF DISTRESS, WILL REPORT TO ONCOMING RN AT BEDSIDE.
--- NOTE | 2020-11-04 23:03 | NUR ---
CARE ASSUMED 1900 PT A/O X 4, CALM/COOPERATIVE, AND ON RA. VSS, NSR. PT HAD SHEATH TO R GROIN, REMOVED AT 1755, THIS SITE ABSENT OF HEMATOMA/TENDERNESS, PT ABLE TO MOVE ALL DIGITS, DENIES NUMBERNSSMARIIA DRESSING PRESENT. PREVIOUS INVENTORY CONTROL ASSISTANT PROCEDURE BLUE/GREENISH DISCOLORATION UNDER CATH SITE. SMALL HARDENED AREA NOTED IN PREVIOUS SITE. SPO2 PROBE ON FIND RIGHT DIGIT, SPO2 WITH GOOD WAVEFORM > 95%. PT ABLE TO TEACH BACK THE IMPORTANCE OF LAYING SUPINE AND COMPLAINT WITH KEEPING LEG STRAIGHT/LOG ROLLING. PT DENIES N/V, CP, SOB, AND DIZZINESS. ALL PULSES STRONG. PT MOVED FROM ICU-8 TO ICU-1 VIA BED. TOLERATED WELL.
--- NOTE | 2020-11-05 02:02 | NUR ---
UPDATE PT ON 2 L VIA NC WHILE SLEEPING TO KEEP SPO2 > 90%. PTS HOB ELEVATED TO 30 DEGREES. R FEMORAL GROIN SITE SOFT, NON-TENDER, NO HEMATOMA, PULSES STRONG, RIGHT LOWER EXTREMITY APPEARANCE PINK AND TEMP WARM. PT DENIES CP, SOB, OR DIZZINESS. PT CONTINUES TO BE A/O. VSS.
[2020-11-05 04:31] LABS: BASOPHILS ABSOLUTE AUTO 0.05 K/mm3 (0.00-0.23); BASOPHILS PERCENT AUTO 1 % (0-2); EOSINOPHILS ABSOLUTE AUTO 0.11 K/mm3 (0.00-0.68); EOSINOPHILS PERCENT AUTO 1 % (0-6); Hematocrit 34.9 % (33.0-51.0); Hemoglobin 11.3 g/dL (11.5-16.0); IMMATURE GRAN ABSOLUTE AUTO 0.04 K/mm3 (0.00-0.10); IMMATURE GRAN PERCENT AUTO 1 % (0-1); LYMPHOCYTES ABSOLUTE AUTO 2.08 K/mm3 (0.84-5.20); LYMPHOCYTES PERCENT AUTO 24 % (21-46); MONOCYTES ABSOLUTE AUTO 0.91 K/mm3 (0.16-1.47); MONOCYTES PERCENT AUTO 11 % (4-13); Mean Corpuscular HGB 30.1 pg (26.0-34.0); Mean Corpuscular HGB Conc 32.4 g/dL (31.5-36.5); Mean Corpuscular Volume 93 fL (80-100); Mean Platelet Volume 10.6 fL (9.1-12.4); NEUTROPHILS ABSOLUTE AUTO 5.42 K/mm3 (1.96-9.15); NEUTROPHILS PERCENT AUTO 63 % (41-73); Platelet Count 229 K/mm3 (150-400); RDW Coefficient Variation 14.6 % (11.7-14.2); RDW Standard Deviation 49.2 fL (35.1-46.3); Red Blood Cell Count 3.76 M/mm3 (3.80-5.20); White Blood Cell Count 8.61 K/mm3 (4.00-11.30)
[2020-11-05 04:47] LABS: Bun/Creatinine Ratio 17.1 (12.0-20.0); Calcium, Blood 8.9 mg/dL (8.5-10.1)
--- NOTE | 2020-11-05 06:34 | NUR ---
SHIFT SUMMARY PT A/O X 4, CALM AND COOPERATIVE. ON RA, SPO2 96%. CRACKLES NOTED IN BASES, PT DENIES SOB. PT REQUIRED 2 L VIA NC WHILE SLEEPING AND INTERMITTENTLY DECREASES TO 88-86% WHEN ON RA WHILE TALKING WELL. PTS SBP INCREASES TO 160-170'S WHEN SPEAKING/COMMUNICATING BUT QUICKLY RECOVERS TO 120-130'S WHEN AT REST. PT REMAINS IN NSR. VSS OTHERWISE. PT ABLE TO AMBULATE TO USE TOILET AND TOLERATED WELL. PT EAGER TO GO HOME AND WALK/SIT IN CHAIR. RIGHT FEMORAL GROIN SITE WNL, NO HEMATOMA, NO TENDERNESS, OR NUMBNESS REPORTED BY PT. PULSE STRONG IN RIGHT LOWER EXTREM AND TEMP WNL. WILL REPORT TO ONCOMING SHIFT.
--- NOTE | 2020-11-05 08:00 | NUR ---
PT A&OX4. DENIES PAIN OR SOB. ECG SHOWS SR. SBP 170'S AT TIMES PRIOR TO ADMINISTRATION OF PT ROUTINE AM MEDS. LUNGS WITH FEW FINE, CRACKLES TO BASES. PT DENIES COUGH OR DYSPNEA. PT ASSISTED UP TO BRP, THEN TO THE CHAIR FOR BREAKFAST. PT ATE 50% OF CARDIAC TRAY WITHOUT GI DISTRESS. RIGHT GROIN SITE HAS MILD BRUISING NOTED. HOWEVER, THE BRUISING APPEARS TO BE OLD AND FADING. PT DID NOT REPORT ANY TENDERNESS WITH PALPATION AND NO NOTED HEMATOMA. RIGHT GROIN SITE WITH CLEAR, OCCLUSIVE DRESSING THAT IS C/D/I.
--- NOTE | 2020-11-05 08:57 | NUR ---
DR MUSA CONTACED REGARDING FINE, CRACKLES IN THE BASES. CXR AND LASIX 40 MG IVP X 1 ORDERED. ANTICIPATE PT DISCHARGE TO HOME LATER THIS AM.
[2020-11-05] MEDS ORDERED: FURO20 PO (10:33)
--- NOTE | 2020-11-05 11:03 | NUR ---
PT DISCHARGED TO HOME. OUT VIA WHEELCHAIR WITH DISCHARGE INSTRUCTIONS AND BELONGINGS ON HAND. RX PHONED TO [facility] IN [place] PER PT REQUEST.
== END 2020-11-05 11:03 | disposition home or self-care (01) ==
LOC: MHTC 07:44 → PCU 11:15 → ICUE 11:46
PROVIDERS: ADMIT Internal Medicine Interventional Cardiology
DX: I25.10 Atherosclerotic heart disease of native coronary artery without angina pectoris (principal); I10 Essential (primary) hypertension; E78.5 Hyperlipidemia, unspecified; H40.9 Unspecified glaucoma; M06.4 Inflammatory polyarthropathy; Z79.82 Long term (current) use of aspirin; Z79.02 Long term (current) use of antithrombotics/antiplatelets; Z79.52 Long term (current) use of systemic steroids; Z79.899 Other long term (current) drug therapy; Z88.8 Allergy status to other drugs, medicaments and biological substances; Z23 Encounter for immunization
CPT/HCPCS: 36415; 71045; 76937; 80048; 85025; 85347; 85730; 92920; 92921; 99152; 99153; A9270; A9270-GY; C1725; C1769; C1874; C1887; C1894; C9600; J1644; J1940; J2250; J2405; J3010; J7030; J7050; J7512; Q9967

== ENCOUNTER 2021-09-02 18:31 | Emergency (ER) | payer MEDICARE, OTHER ==
[~2021-09-02] VITALS: Ht 157.5 cm; Wt 54.4 kg
[~2021-09-02 18:31] MED LIST changes: +FURO20 PO; +HYDR1TAB94 PO; +MAGNESIUM250 MG PO; +Norco 10-325 T1 EACH PO; +PRED20 PO
== END 2021-09-02 20:20 | disposition home or self-care (01) ==
LOC: ER 18:31
DX: S51.812A Laceration without foreign body of left forearm, initial encounter (principal); I10 Essential (primary) hypertension; Z88.8 Allergy status to other drugs, medicaments and biological substances; Z79.899 Other long term (current) drug therapy; Z79.82 Long term (current) use of aspirin; Z79.02 Long term (current) use of antithrombotics/antiplatelets; W19.XXXA Unspecified fall, initial encounter
CPT/HCPCS: 12032; 99282-25

== ENCOUNTER 2021-09-11 16:36 | Emergency (ER) | payer MEDICARE ==
[~2021-09-11] VITALS: Ht 157.5 cm; Wt 54.4 kg
== END 2021-09-11 19:48 | disposition home or self-care (01) ==
LOC: ER 16:36
DX: R04.0 Epistaxis (principal); I10 Essential (primary) hypertension; Z88.8 Allergy status to other drugs, medicaments and biological substances; Z79.82 Long term (current) use of aspirin; Z79.899 Other long term (current) drug therapy; Z79.52 Long term (current) use of systemic steroids
CPT/HCPCS: 30901; 99283-25; A9270

== ENCOUNTER 2022-04-14 00:56 | Emergency (ER) | payer MEDICARE ==
[~2022-04-14] VITALS: Ht 157.5 cm; Wt 50.4 kg
[~2022-04-14 00:56] MED LIST changes: +HYDROCODONE-AC1 EA15 PO; +ISOSORBIDE MONO30 MG PO
[2022-04-14 01:32] LABS: BASOPHILS ABSOLUTE AUTO 0.04 K/mm3 (0.00-0.23); BASOPHILS PERCENT AUTO 0 % (0-2); EOSINOPHILS ABSOLUTE AUTO 0.14 K/mm3 (0.00-0.68); EOSINOPHILS PERCENT AUTO 1 % (0-6); Hematocrit 30.6 % (33.0-51.0); Hemoglobin 9.3 g/dL (11.5-16.0); IMMATURE GRAN ABSOLUTE AUTO 0.06 K/mm3 (0.00-0.10); IMMATURE GRAN PERCENT AUTO 1 % (0-1); LYMPHOCYTES ABSOLUTE AUTO 2.11 K/mm3 (0.84-5.20); LYMPHOCYTES PERCENT AUTO 21 % (21-46); MONOCYTES ABSOLUTE AUTO 1.05 K/mm3 (0.16-1.47); MONOCYTES PERCENT AUTO 10 % (4-13); Mean Corpuscular HGB 27.9 pg (26.0-34.0); Mean Corpuscular HGB Conc 30.4 g/dL (31.5-36.5); Mean Corpuscular Volume 92 fL (80-100); Mean Platelet Volume 9.1 fL (9.1-12.4); NEUTROPHILS ABSOLUTE AUTO 6.86 K/mm3 (1.96-9.15); NEUTROPHILS PERCENT AUTO 67 % (41-73); Platelet Count 393 K/mm3 (150-400); RDW Coefficient Variation 15.7 % (11.7-14.2); RDW Standard Deviation 52.2 fL (35.1-46.3); Red Blood Cell Count 3.33 M/mm3 (3.80-5.20); White Blood Cell Count 10.26 K/mm3 (4.00-11.30)
[2022-04-14 01:44] LABS: Albumin, Blood 3.2 g/dL (3.4-5.0); Albumin/Globulin Ratio 0.8 (0.8-1.8); Bilirubin, Total 0.3 mg/dL (0.1-1.0); Bun/Creatinine Ratio 26.5 (12.0-20.0); Calcium, Blood 9.4 mg/dL (8.5-10.1); Creatinine, Blood 0.87 mg/dL (0.40-1.00); Globulin, Blood 3.8 g/dL (2.2-4.0); Potassium, Blood 4.1 mmol/L (3.5-5.5)
== END 2022-04-14 03:11 | disposition home or self-care (01) ==
LOC: ER 00:56
PROVIDERS: Student in an Organized Health Care Education/Training Program
DX: M54.12 Radiculopathy, cervical region (principal); I10 Essential (primary) hypertension; Z88.8 Allergy status to other drugs, medicaments and biological substances; Z79.899 Other long term (current) drug therapy; Z79.82 Long term (current) use of aspirin
CPT/HCPCS: 80053; 84484; 85025; 93005; 93010; 99284-25; A9270

== ENCOUNTER 2022-10-01 13:48 | Day surgery (SDC) | payer MEDICARE ==
[~2022-10-01] VITALS: Ht 157.5 cm; Wt 47.8 kg
[2022-10-01] MEDS ORDERED: GABA100 (14:43)
== END 2022-10-01 16:13 | disposition home or self-care (01) ==
LOC: ORSCSDS 13:48
PROVIDERS: Student in an Organized Health Care Education/Training Program
PROC: 0D758ZZ Dilation of Esophagus, Via Natural or Artificial Opening Endoscopic (ICD-10-PCS; principal; 2022-10-01 15:15)
DX: R13.10 Dysphagia, unspecified (principal); K21.9 Gastro-esophageal reflux disease without esophagitis; K22.5 Diverticulum of esophagus, acquired; K44.9 Diaphragmatic hernia without obstruction or gangrene; K31.7 Polyp of stomach and duodenum; K22.2 Esophageal obstruction; I10 Essential (primary) hypertension; E03.9 Hypothyroidism, unspecified; Z79.899 Other long term (current) drug therapy; Z79.82 Long term (current) use of aspirin
CPT/HCPCS: C1726; J0330; J0461; J2405; J2704; J7120; Q9968